=== PATIENT | male | born 1985 | race Asian ===

== ENCOUNTER 2023-11-09 20:25 | Emergency (ER) | payer MEDICAID ==
[~2023-11-09] VITALS: Ht 170.2 cm; Wt 74.8 kg
[2023-11-09 20:40] VITALS: BP_SYST 129; PULSE 76; RESP 17; TEMP 97.8; O2SAT 98
[2023-11-09] MEDS ORDERED: IBUP-1969 PO (22:37)
[2023-11-09 23:07] VITALS: BP_SYST 127; PULSE 71; RESP 18; TEMP 98.6; O2SAT 98
== END 2023-11-09 23:02 | disposition home or self-care (01) ==
LOC: SED 20:25
DX: S90.32XA Contusion of left foot, initial encounter (principal); W18.39XA Other fall on same level, initial encounter; Y93.89 Activity, other specified; Y92.89 Other specified places as the place of occurrence of the external cause; Y99.8 Other external cause status
CPT/HCPCS: 73650; 99284